=== PATIENT | female | born 1945 | race Caucasian/White ===

== ENCOUNTER 2018-09-24 11:08 | Inpatient (IN) | payer MEDICARE, MEDICAID | END 2018-10-02 14:02 | LOC: ER 11:08 → ED HOLD 16:25 → SUR 3N 19:23 | DX: A41.9 Sepsis, unspecified organism (principal); E43 Unspecified severe protein-calorie malnutrition; E87.1 Hypo-osmolality and hyponatremia; K80.51 Calculus of bile duct without cholangitis or cholecystitis with obstruction; L02.211 Cutaneous abscess of abdominal wall; K80.31 Calculus of bile duct with cholangitis, unspecified, with obstruction; N39.0 Urinary tract infection, site not specified; F32.9 Major depressive disorder, single episode, unspecified; I10 Essential (primary) hypertension; Z79.01 Long term (current) use of anticoagulants; E11.9 Type 2 diabetes mellitus without complications; G30.9 Alzheimer's disease, unspecified; F02.80 Dementia in other diseases classified elsewhere, unspecified severity, without behavioral disturbance, psychotic disturbance, mood disturbance, and anxiety; E03.9 Hypothyroidism, unspecified ==

== ENCOUNTER 2020-01-16 11:54 | Emergency (ER) | payer MEDICARE, MEDICAID ==
[~2020-01-16] VITALS: Ht 170.2 cm; Wt 128.6 kg
[~2020-01-16 11:54] MED LIST: DIGO125T97 PO; ESCI20TA PO; HYDR-3964 PO; IBUP-1984 PO; IPRA3AMP31 IH; LACT1CAP26 PO; LEVO50TA8 PO; LOSA50TA64 PO; MYL80T PO; OMEP20CA15 PO; POLY17PO10 PO; ROPI0.5T4 PO; SERT25TA5 PO; TRAM100T27 PO; TRAM50TA2 PO
[2020-01-16 12:00] VITALS: BP 158/84
--- NOTE | 2020-01-16 12:36 | NUR ---
CALL TO [phone] TO INFORM OF PT SHANICESNFER BACK TO [facility]. SHE STATES THEY HAVE AN [facility] ROOM READY. SPOKE WITH ALANA LAWRENCE IT INQUIRE PLAN FOR TRANSFER BACK. PLAN TO HAVE SAME CREW UNIT 142 TRANSFER PT BACK.
--- NOTE | 2020-01-16 12:53 | NUR ---
[facility] AWARE OF PT GLUER AND WEDGER.
--- NOTE | 2020-01-16 17:15 | NUR ---
RECEIVED CALL AGAIN FROM ZULEYKA AT [facility] RE PTS VISIT. SHE HAS ATTEMPTED TO F/U WITH [facility] FOR FUTHER QUESTIONS AND CONTACT TRACING FOR PT. ZULEYKA HAS BEEN UNABLE TO GET INTOUCH WITH [facility] AND IS NOT ABLE TO LEAVE A MESSAGE. SPOKE WITH ALPESH INIGUEZ THAT STATES FOR ANY QUESTIONS RE: COVID NEED TO GO TO [facility] OR [facility]. INFORMED ZULEYKA OF THIS AND INFROMED HER [facility] WAS TILE PICKER TOMORROW. SHE STATES SHE WILL TRY [facility] TOMORROW.
== END 2020-01-16 13:17 | disposition home or self-care (01) ==
LOC: ER 11:55
DX: U07.1 COVID-19 (principal); L02.211 Cutaneous abscess of abdominal wall; I48.91 Unspecified atrial fibrillation; I10 Essential (primary) hypertension; G47.30 Sleep apnea, unspecified; E11.9 Type 2 diabetes mellitus without complications; F32.9 Major depressive disorder, single episode, unspecified; Z88.8 Allergy status to other drugs, medicaments and biological substances; Z79.899 Other long term (current) drug therapy
CPT/HCPCS: 99281; 99283

== ENCOUNTER 2020-01-29 07:33 | Emergency (ER) | payer MEDICARE, MEDICAID ==
[~2020-01-29] VITALS: Ht 170.2 cm; Wt 127.0 kg
--- NOTE | 2020-01-29 08:51 | NUR ---
patient repositioned to right side.
--- NOTE | 2020-01-29 09:58 | NUR ---
PATIENT ASLEEP AT THIS TIME.
[2020-01-29 12:26] VITALS: BP 138/93
== END 2020-01-29 12:28 | disposition home or self-care (01) ==
LOC: ER 07:34
DX: T85.698A Other mechanical complication of other specified internal prosthetic devices, implants and grafts, initial encounter (principal); K75.0 Abscess of liver; I48.91 Unspecified atrial fibrillation; I10 Essential (primary) hypertension; G47.30 Sleep apnea, unspecified; E11.9 Type 2 diabetes mellitus without complications; F32.9 Major depressive disorder, single episode, unspecified; Z79.899 Other long term (current) drug therapy
CPT/HCPCS: 74176; 99285

== ENCOUNTER 2020-02-12 23:08 | Inpatient (IN) | payer MEDICARE, MEDICAID ==
[~2020-02-12] VITALS: Ht 172.7 cm; Wt 125.9 kg
[2020-02-12 23:23] LABS: BASOPHILS # (AUTO) 0.1 X10'3 (0-0.2); BASOPHILS % (AUTO) 0.3 % (0-1); EOSINOPHILS % (AUTO) 0.2 % (0-6); HEMATOCRIT 39.9 % (35.0-45.0); HEMOGLOBIN 12.7 g/dl (12.0-16.0); LYMPHOCYTES # (AUTO) 0.3 X10'3 (1.1-4.8); LYMPHOCYTES % (AUTO) 1.4 % (21-51); MEAN CORPUSCULAR HEMOGLOBIN 26.8 PG (27.0-31.0); MEAN CORPUSCULAR HGB CONC 31.8 g/dL (33.0-36.5); MEAN CORPUSCULAR VOLUME 84.5 FL (78-98); MEAN PLATELET VOLUME 8.1 FL (7.4-10.4); MONOCYTES # (AUTO) 0.6 X10'3 (0-0.9); MONOCYTES % (AUTO) 3.2 % (2-12); NEUTROPHILS % (AUTO) 94.9 % (42-75); PLATELET COUNT 333 X10'3 (140-440); RED BLOOD COUNT 4.72 X10'6 (4.20-5.60); RED CELL DISTRIBUTION WIDTH 17.3 % (11.5-14.5); WHITE BLOOD COUNT 17.9 X10'3 (4.5-11.0)
[2020-02-12 23:38] LABS: ANION GAP 10 (8-16); BILIRUBIN,TOTAL 1.3 MG/DL (0.1-1.0); BLOOD UREA NITROGEN 20 MG/DL (7-18); BUN/CREATININE RATIO 19.6 (6.6-38.0); CALCIUM 8.1 MG/DL (8.5-10.1); CHLORIDE 104 MMOL/L (99-107); CREATININE 1.02 MG/DL (0.40-0.90); GLUCOSE 224 MG/DL (70-104); SODIUM 138 MMOL/L (135-145); TOTAL CARBON DIOXIDE 24.4 MMOL/L (24-32); TOTAL PROTEIN 6.9 G/DL (6.4-8.2); eGFR 53 ML/MIN
[2020-02-12 23:39] LABS: ALANINE AMINOTRANSFERASE 493 U/L (12-78); ALBUMIN/GLOBULIN RATIO 0.8 (1.1-1.5); ALKALINE PHOSPHATASE 568 IU/L (46-116); ASPARTATE AMINO TRANSFERASE 648 U/L (10-37); LIPASE 77 U/L (73-393)
[2020-02-13] VITALS (17 sets, daily range): BP systolic 86–151; BP diastolic 48–79
[2020-02-13] MEDS ORDERED: acetaminophen 325mg tablet PO STA (00:33)
[2020-02-13] MEDS ORDERED: piperacillin/tazo 3.375gm/50ml 50 ML IV ONE (00:35)
[2020-02-13] MEDS ORDERED: normal saline 1000ML IV soln IV ONE (00:35)
[2020-02-13] MEDS ORDERED: vancomycin/NS 1 GM ADD-VANTAGE 250 ML IV ONE (00:35)
[2020-02-13 01:16] LABS: PARTIAL THROMBOPLASTIN TIME 27 SECONDS (22-32)
[2020-02-13] MEDS ORDERED: RIVA20TA PO (01:34)
[2020-02-13] MEDS ORDERED: HYDR-4383 PO (01:34)
[2020-02-13] MEDS ORDERED: SENN-263 PO (01:34)
[2020-02-13] MEDS ORDERED: DOCU100C38 PO (01:34)
[2020-02-13 01:57] LABS: CLARITY,URINE CLEAR (Clear); COLOR,URINE AMBER (Yellow); GLUCOSE, URINE NEGATIVE (Neg); KETONES,URINE NEGATIVE (Neg); LEUKOCYTE ESTERASE ,URINE NEGATIVE (Neg); NITRITES, URINE NEGATIVE (Neg); OCCULT BLOOD,URINE LARGE (Neg); PROTEIN,URINE NEGATIVE (Neg)
[2020-02-13 01:58] LABS: UA COLLECTION TYPE STRAIGHT CATH
[2020-02-13 02:08] LABS: BACTERIA,URINE NONE SEEN /HPF (Neg); MUCUS STRANDS FEW /LPF (Neg); SQUAMOUS EPITHELIAL CELL,UR FEW /LPF (FEW)
[2020-02-13] MEDS ORDERED: ONDA4TAB6 PO (02:10)
[2020-02-13] MEDS ORDERED: morphine 2 MG/ML inj. syringe IV PRN ×2 (04:15)
[2020-02-13] MEDS ORDERED: mag hydrox/Alum hydrox/simeth 30ml oral suspension PO PRN (04:15)
[2020-02-13] MEDS ORDERED: ondansetron/PF 4mg/2ml inj IV PRN (04:15)
[2020-02-13] MEDS ORDERED: ipratropium/albuterol 3ml nebule IH PRN (04:15)
[2020-02-13] MEDS ORDERED: polyethylene glycol 3350 17gm powd pack PO PRN (04:15)
[2020-02-13] MEDS ORDERED: potassium Cl 20 mEq SR tablet PO PRN ×2 (04:15)
[2020-02-13] MEDS ORDERED: magnesium hydroxide 30ml (MOM) UD suspension PO PRN (04:15)
[2020-02-13] MEDS ORDERED: potassium CL 10mEq/100ml bag 100 ML IV PRN ×2 (04:15)
[2020-02-13] MEDS ORDERED: acetaminophen 325mg tablet PO PRN (04:15)
--- NOTE | 2020-02-13 07:00 | NUR ---
Report received from ED [facility]
[2020-02-13] MEDS ORDERED: dextrose ORAL solution 15 GM/59 ML bottle PO PRN ×2 (07:45)
[2020-02-13] MEDS ORDERED: dextrose 50%-water 50ml dispensing syringe IV PRN ×2 (07:45)
[2020-02-13] MEDS ORDERED: insulin Lispro (HumaLOG) vial - multi-dose SQ SCH (07:45)
[2020-02-13] MEDS ORDERED: MESSAGE TO PHARMACY PO ONE (07:45)
[2020-02-13] MEDS ORDERED: glucagon, human recombinant 1mg kit SUBCUT PRN (07:45)
[2020-02-13] MEDS: K and/or MAG REPLACEMENT MC SCH ×2 (07:48→20:00)
[2020-02-13] MEDS: losartan 50mg tablet PO SCH (07:49)
[2020-02-13] MEDS: normal saline 1000ml 1,000 ML IV SCH ×3 (07:53→22:19)
[2020-02-13] MEDS ORDERED: docusate sod 100mg capsule PO SCH (08:00)
[2020-02-13 08:05] LABS: HEMOGLOBIN A1C 7.2 % (4.5-6.2)
[2020-02-13] MEDS: ESCITALOPRAM OXALATE 5 MG TABLET PO SCH (09:52)
[2020-02-13] MEDS: docusate sod 100mg capsule PO SCH (09:52)
[2020-02-13] MEDS: sennosides 8.6mg tablet PO SCH (09:52)
[2020-02-13] MEDS: piperacillin/tazo 3.375gm/50ml 50 ML IV SCH ×3 (09:53→23:56)
[2020-02-13] MEDS: pantoprazole 40mg Tablet.DR PO SCH (09:54)
[2020-02-13] MEDS: levoTHYROXINE 25mcg tablet PO SCH (09:54)
--- NOTE | 2020-02-13 14:30 | NUR ---
Pt off the floor to GI lab
[2020-02-13] MEDS ORDERED: fentaNYL/PF 50MCG/1 ML 2ML syringe ONE (14:40)
[2020-02-13] MEDS ORDERED: MIDAZolam 5mg/5ml vial ONE (14:40)
[2020-02-13] MEDS ORDERED: diphenhydrAMINE 50 mg/ml inj ONE (14:41)
[2020-02-13] MEDS ORDERED: glucagon, human recombinant 1mg kit ONE (14:41)
[2020-02-13] MEDS ORDERED: LIDOcaine Viscous 15ml cup ONE (14:41)
[2020-02-13] MEDS ORDERED: iohexol 300 MG/1 ML 50ml polymer ONE (14:41)
--- NOTE | 2020-02-13 18:10 | NUR ---
Problems reprioritized. Patient report given, questions answered & plan of care reviewed with RICARDO Mcclelland.
[2020-02-13] MEDS: insulin glargine (Lantus) pen - multi-dose SQ SCH (20:04)
[2020-02-13] MEDS: rivaroxaban 20mg tablet PO SCH (20:07)
[2020-02-13] MEDS: HYDROcodone/acetaminophen 5mg/325mg tablet PO PRN (20:07)
[2020-02-13] MEDS: digoxin 125mcg (0.125mg) tablet PO SCH (20:08)
[2020-02-13] MEDS: ROPINIRole 1mg tablet PO SCH (20:08)
[2020-02-13] MEDS: sertraline 25mg tablet PO SCH (20:09)
--- NOTE | 2020-02-13 21:01 | NUR ---
2100 blood glucose performed. Pt just finished eating late dinner tray one hour ago.
[2020-02-14 03:58] VITALS: BP 117/70
--- NOTE | 2020-02-14 06:00 | NUR ---
Patient in room ORTHO 4007. I have received report from [facility] and had the opportunity to ask questions and assume patient care.
[2020-02-14 06:52] LABS: BASOPHILS # (AUTO) 0.1 X10'3 (0-0.2); BASOPHILS % (AUTO) 0.4 % (0-1); EOSINOPHILS # (AUTO) 0.5 X10'3 (0-0.9); EOSINOPHILS % (AUTO) 3.5 % (0-6); HEMATOCRIT 34.2 % (35.0-45.0); HEMOGLOBIN 11.1 g/dl (12.0-16.0); LYMPHOCYTES # (AUTO) 0.7 X10'3 (1.1-4.8); LYMPHOCYTES % (AUTO) 4.9 % (21-51); MEAN CORPUSCULAR HEMOGLOBIN 27.8 PG (27.0-31.0); MEAN CORPUSCULAR HGB CONC 32.5 g/dL (33.0-36.5); MEAN CORPUSCULAR VOLUME 85.4 FL (78-98); MEAN PLATELET VOLUME 8.6 FL (7.4-10.4); MONOCYTES # (AUTO) 0.5 X10'3 (0-0.9); MONOCYTES % (AUTO) 3.6 % (2-12); NEUTROPHILS # (AUTO) 12.6 X10'3 (1.8-7.7); NEUTROPHILS % (AUTO) 87.6 % (42-75); PLATELET COUNT 287 X10'3 (140-440); RED CELL DISTRIBUTION WIDTH 17.1 % (11.5-14.5); WHITE BLOOD COUNT 14.4 X10'3 (4.5-11.0)
[2020-02-14 06:57] LABS: ALANINE AMINOTRANSFERASE 261 U/L (12-78); ALBUMIN 2.4 G/DL (3.4-5.0); ALBUMIN/GLOBULIN RATIO 0.7 (1.1-1.5); ANION GAP 7 (8-16); ASPARTATE AMINO TRANSFERASE 96 U/L (10-37); BILIRUBIN,TOTAL 1.1 MG/DL (0.1-1.0); BLOOD UREA NITROGEN 15 MG/DL (7-18); BUN/CREATININE RATIO 19.5 (6.6-38.0); CALCIUM 7.6 MG/DL (8.5-10.1); CHLORIDE 109 MMOL/L (99-107); CREATININE 0.77 MG/DL (0.40-0.90); GLUCOSE 97 MG/DL (70-104); POTASSIUM 3.5 MMOL/L (3.5-5.1); SODIUM 142 MMOL/L (135-145); TOTAL CARBON DIOXIDE 25.9 MMOL/L (24-32); eGFR 73 ML/MIN
[2020-02-14 07:15] LABS: ALKALINE PHOSPHATASE 298 IU/L (46-116)
[2020-02-14] MEDS: losartan 50mg tablet PO SCH (07:47)
[2020-02-14] MEDS: pantoprazole 40mg Tablet.DR PO SCH (07:47)
[2020-02-14] MEDS: ESCITALOPRAM OXALATE 5 MG TABLET PO SCH (07:47)
[2020-02-14] MEDS: docusate sod 100mg capsule PO SCH (07:47)
[2020-02-14] MEDS: levoTHYROXINE 25mcg tablet PO SCH (07:47)
[2020-02-14] MEDS: sennosides 8.6mg tablet PO SCH (07:47)
[2020-02-14] MEDS: K and/or MAG REPLACEMENT MC SCH ×2 (08:00→20:00)
[2020-02-14] MEDS ORDERED: docusate sod 100mg capsule PO SCH (08:00)
[2020-02-14] MEDS: piperacillin/tazo 3.375gm/50ml 50 ML IV SCH ×2 (08:09→15:53)
[2020-02-14 10:00] VITALS: BP 115/77
[2020-02-14] MEDS: normal saline 1000ml 1,000 ML IV SCH ×2 (10:21→19:55)
--- NOTE | 2020-02-14 13:09 | NUR ---
DM Consult: A1C 7.2. Pt admit w/ RUQ abdominal abscess and pain placed on full liquid diet. Sepsis score 0 w/ clutures negative per EMR. A1C appropriate given geriatric age; DM ed not appropriate at this time. Addendum: 02/14/20 at [address] Amended: Links added.
[2020-02-14 18:00] VITALS: BP 148/80
--- NOTE | 2020-02-14 18:16 | NUR ---
Problems reprioritized. Patient report given, questions answered & plan of care reviewed with Sara.
[2020-02-14] MEDS: insulin glargine (Lantus) pen - multi-dose SQ SCH (21:00)
[2020-02-14] MEDS: lactobacillus rhamnosus 10,000 MMU CELLS/CAPSULE PO SCH (21:38)
[2020-02-14] MEDS: sertraline 25mg tablet PO SCH (21:39)
[2020-02-14] MEDS: rivaroxaban 20mg tablet PO SCH (21:39)
[2020-02-14] MEDS: digoxin 125mcg (0.125mg) tablet PO SCH (21:39)
[2020-02-14] MEDS: ROPINIRole 1mg tablet PO SCH (21:41)
[2020-02-14 22:00] VITALS: BP 158/87
[2020-02-15] MEDS: HYDROcodone/acetaminophen 5mg/325mg tablet PO PRN ×3 (00:09→13:39)
[2020-02-15] MEDS: piperacillin/tazo 3.375gm/50ml 50 ML IV SCH ×2 (00:10→07:57)
[2020-02-15 05:58] LABS: BASOPHILS # (AUTO) 0.1 X10'3 (0-0.2); BASOPHILS % (AUTO) 0.6 % (0-1); EOSINOPHILS # (AUTO) 0.5 X10'3 (0-0.9); EOSINOPHILS % (AUTO) 4.8 % (0-6); HEMATOCRIT 34.5 % (35.0-45.0); HEMOGLOBIN 11.1 g/dl (12.0-16.0); LYMPHOCYTES # (AUTO) 1.3 X10'3 (1.1-4.8); MEAN CORPUSCULAR HEMOGLOBIN 27.3 PG (27.0-31.0); MEAN CORPUSCULAR VOLUME 85.2 FL (78-98); MEAN PLATELET VOLUME 8.3 FL (7.4-10.4); MONOCYTES # (AUTO) 0.5 X10'3 (0-0.9); MONOCYTES % (AUTO) 5.6 % (2-12); NEUTROPHILS # (AUTO) 7.4 X10'3 (1.8-7.7); PLATELET COUNT 292 X10'3 (140-440); RED BLOOD COUNT 4.06 X10'6 (4.20-5.60); RED CELL DISTRIBUTION WIDTH 17.2 % (11.5-14.5); WHITE BLOOD COUNT 9.7 X10'3 (4.5-11.0)
[2020-02-15] MEDS: normal saline 1000ml 1,000 ML IV SCH (06:11)
[2020-02-15 06:17] LABS: ALBUMIN 2.4 G/DL (3.4-5.0); ALBUMIN/GLOBULIN RATIO 0.7 (1.1-1.5); ANION GAP 9 (8-16); ASPARTATE AMINO TRANSFERASE 30 U/L (10-37); BILIRUBIN,TOTAL 0.7 MG/DL (0.1-1.0); BLOOD UREA NITROGEN 10 MG/DL (7-18); BUN/CREATININE RATIO 11.1 (6.6-38.0); CALCIUM 8.1 MG/DL (8.5-10.1); CHLORIDE 110 MMOL/L (99-107); GLUCOSE 121 MG/DL (70-104); POTASSIUM 3.4 MMOL/L (3.5-5.1); SODIUM 143 MMOL/L (135-145); TOTAL CARBON DIOXIDE 24.4 MMOL/L (24-32); eGFR 61 ML/MIN
[2020-02-15 06:18] LABS: ALANINE AMINOTRANSFERASE 164 U/L (12-78); ALKALINE PHOSPHATASE 252 IU/L (46-116)
[2020-02-15 06:48] VITALS: BP 135/60
--- NOTE | 2020-02-15 06:56 | NUR ---
Received report from Sara SILVA
[2020-02-15] MEDS: lactobacillus rhamnosus 10,000 MMU CELLS/CAPSULE PO SCH (07:56)
[2020-02-15] MEDS: docusate sod 100mg capsule PO SCH (07:57)
[2020-02-15] MEDS: pantoprazole 40mg Tablet.DR PO SCH (07:57)
[2020-02-15] MEDS: losartan 50mg tablet PO SCH (07:57)
[2020-02-15] MEDS: sennosides 8.6mg tablet PO SCH (07:57)
[2020-02-15] MEDS: levoTHYROXINE 25mcg tablet PO SCH (07:57)
[2020-02-15] MEDS: ESCITALOPRAM OXALATE 5 MG TABLET PO SCH (07:57)
[2020-02-15] MEDS: K and/or MAG REPLACEMENT MC SCH (08:00)
--- NOTE | 2020-02-15 15:42 | NUR ---
PATIENT WAS DISCHARGED IV AND TELE WAS REMOVED FROM PATIENT. PATIENT WAS ALERT AND ORIENTED AT TIME OF DISCHARGE. PATIENT LEFT TO [facility] AND REPORT WAS CALLED TO [facility] PATIENT LEFT WITH ROBINA MONTAGUE
== END 2020-02-15 14:35 | DRG 872 ==
LOC: ER 23:08 → ED HOLD 02-13 04:11 → ORTHO 4S 02-13 07:20
PROVIDERS: ADMIT Internal Medicine; ATTEND Internal Medicine
PROC: 0FC98ZZ Extirpation of Matter from Common Bile Duct, Via Natural or Artificial Opening Endoscopic (ICD-10-PCS; principal; 2020-02-13)
PROC: 0F798DZ Dilation of Common Bile Duct with Intraluminal Device, Via Natural or Artificial Opening Endoscopic (ICD-10-PCS; 2020-02-13)
PROC: BF101ZZ Fluoroscopy of Bile Ducts using Low Osmolar Contrast (ICD-10-PCS; 2020-02-13)
DX: A41.9 Sepsis, unspecified organism (principal); L02.211 Cutaneous abscess of abdominal wall; Z68.41 Body mass index [BMI] 40.0-44.9, adult; K80.31 Calculus of bile duct with cholangitis, unspecified, with obstruction; E03.9 Hypothyroidism, unspecified; E66.01 Morbid (severe) obesity due to excess calories; G47.33 Obstructive sleep apnea (adult) (pediatric); E11.9 Type 2 diabetes mellitus without complications; F32.9 Major depressive disorder, single episode, unspecified; I10 Essential (primary) hypertension; I48.91 Unspecified atrial fibrillation; M17.0 Bilateral primary osteoarthritis of knee; Z66 Do not resuscitate; Z74.01 Bed confinement status; Z79.01 Long term (current) use of anticoagulants; Z88.1 Allergy status to other antibiotic agents; Z98.82 Breast implant status; Z99.81 Dependence on supplemental oxygen; Z79.899 Other long term (current) drug therapy
CPT/HCPCS: 36415; 43264; 43274; 74176; 80053; 81001; 82948; 83036; 83605; 83690; 84145; 85025; 85610; 85730; 87040; 87081; 87088; 93005; 94760; 96365; 96375; 97162; 97530; 99153; 99285; A4620; C1769; G0378; J1200; J1610; J1815; J2250; J2543; J3010; J3370; J7030; J7040; Q9967

== ENCOUNTER 2020-03-07 06:29 | Day surgery (SDC) | payer MEDICARE, MEDICAID ==
[2020-03-07] VITALS (7 sets, daily range): BP systolic 102–138; BP diastolic 58–96
[~2020-03-07] VITALS: Ht 170.2 cm; Wt 123.2 kg
[~2020-03-07 06:29] MED LIST changes: +DOCU100C38 PO; +HYDR-4383 PO; -IBUP-1984 PO; +ONDA4TAB6 PO; +RIVA20TA PO; +SENN-263 PO
[2020-03-07] MEDS ORDERED: fentaNYL/PF 50MCG/1 ML 2ML syringe ONE ×2 (06:44→06:46)
[2020-03-07] MEDS ORDERED: glucagon, human recombinant 1mg kit ONE (06:45)
[2020-03-07] MEDS ORDERED: iohexol 300 MG/1 ML 50ml polymer ONE (06:45)
[2020-03-07] MEDS ORDERED: LIDOcaine Viscous 15ml cup ONE (06:45)
[2020-03-07] MEDS ORDERED: MIDAZolam 5mg/5ml vial ONE (06:45)
[2020-03-07] MEDS ORDERED: CEPH-572 PO (06:46)
[2020-03-07] MEDS ORDERED: levoFLOXACIN-Levaquin 500mg/D5 100 ML IV ONE (07:29)
== END 2020-03-07 09:00 ==
LOC: GI LAB 06:29
PROVIDERS: ATTEND Internal Medicine Gastroenterology
DX: Z46.59 Encounter for fitting and adjustment of other gastrointestinal appliance and device (principal); K83.8 Other specified diseases of biliary tract
CPT/HCPCS: 43264; 43275; C1769; C1773; G0500; J1610; J1956; J2250; J3010; J7040; Q9967; 99152; A4620

== ENCOUNTER 2020-03-15 09:52 | Day surgery (SDC) | payer MEDICARE, MEDICAID ==
[~2020-03-15 09:52] MED LIST changes: +CEPH-572 PO
[2020-03-15] MEDS ORDERED: LIDOcaine 2% 5ml jelly ONE (10:53)
[2020-03-22] MEDS ORDERED: LIDOcaine 2% 5ml jelly ONE (09:58)
== END 2020-03-22 10:32 | disposition home or self-care (01) ==
LOC: WOUND CARE 09:52
PROVIDERS: ATTEND Nurse Practitioner
DX: L02.211 Cutaneous abscess of abdominal wall (principal); E11.622 Type 2 diabetes mellitus with other skin ulcer; L98.492 Non-pressure chronic ulcer of skin of other sites with fat layer exposed; I10 Essential (primary) hypertension; E03.9 Hypothyroidism, unspecified; E66.01 Morbid (severe) obesity due to excess calories; G47.33 Obstructive sleep apnea (adult) (pediatric); I48.91 Unspecified atrial fibrillation; M19.90 Unspecified osteoarthritis, unspecified site; M17.0 Bilateral primary osteoarthritis of knee; F32.9 Major depressive disorder, single episode, unspecified; Z90.710 Acquired absence of both cervix and uterus; Z88.1 Allergy status to other antibiotic agents; Z79.899 Other long term (current) drug therapy; Z98.49 Cataract extraction status, unspecified eye; Z95.5 Presence of coronary angioplasty implant and graft; Z79.01 Long term (current) use of anticoagulants; Z68.41 Body mass index [BMI] 40.0-44.9, adult
CPT/HCPCS: 97597

== ENCOUNTER 2020-03-29 10:25 | Day surgery (SDC) | payer MEDICARE, MEDICAID ==
[2020-03-29] MEDS ORDERED: LIDOcaine 2% 5ml jelly ONE (10:50)
[2020-03-30] MEDS ORDERED: BUPIVAcaine/PF 2.5 mg/ml (0.25%) 30ml vial ONE (12:28)
[2020-03-30] MEDS ORDERED: ACET325T63 PO (18:12)
[2020-03-30] MEDS ORDERED: GLUC1KIT IM (18:12)
[2020-03-30] MEDS ORDERED: BISA10SU60 RC (18:12)
== END 2020-03-29 12:45 | disposition home or self-care (01) ==
LOC: WOUND CARE 10:25
PROVIDERS: ATTEND Nurse Practitioner
DX: L02.211 Cutaneous abscess of abdominal wall (principal); E11.622 Type 2 diabetes mellitus with other skin ulcer; L98.492 Non-pressure chronic ulcer of skin of other sites with fat layer exposed; I10 Essential (primary) hypertension; E03.9 Hypothyroidism, unspecified; E66.01 Morbid (severe) obesity due to excess calories; G47.33 Obstructive sleep apnea (adult) (pediatric); I48.91 Unspecified atrial fibrillation; M19.90 Unspecified osteoarthritis, unspecified site; M17.0 Bilateral primary osteoarthritis of knee; F32.9 Major depressive disorder, single episode, unspecified; Z90.710 Acquired absence of both cervix and uterus; Z88.1 Allergy status to other antibiotic agents; Z79.899 Other long term (current) drug therapy; Z98.49 Cataract extraction status, unspecified eye; Z95.5 Presence of coronary angioplasty implant and graft; Z79.01 Long term (current) use of anticoagulants; Z68.41 Body mass index [BMI] 40.0-44.9, adult
CPT/HCPCS: 97597; J3490

== ENCOUNTER 2020-04-06 10:55 | Day surgery (SDC) | payer MEDICARE, MEDICAID ==
[~2020-04-06 10:55] MED LIST changes: +ACET325T63 PO; +BISA10SU60 RC; -CEPH-572 PO; -DOCU100C38 PO; -ESCI20TA PO; +GLUC1KIT IM; -ONDA4TAB6 PO
[2020-04-06] MEDS ORDERED: LIDOcaine 2% 5ml jelly ONE (11:22)
[2020-04-06] MEDS ORDERED: LIDOcaine 4% (40 mg/ml) topical solution 50ml ONE (11:35)
[2020-04-07] MEDS ORDERED: LIDOcaine 2% 5ml jelly ONE (10:36)
== END 2020-04-06 13:15 | disposition home or self-care (01) ==
LOC: WOUND CARE 10:55
PROVIDERS: ATTEND Nurse Practitioner
DX: T81.89XA Other complications of procedures, not elsewhere classified, initial encounter (principal); E11.622 Type 2 diabetes mellitus with other skin ulcer; L98.492 Non-pressure chronic ulcer of skin of other sites with fat layer exposed; E11.36 Type 2 diabetes mellitus with diabetic cataract; I10 Essential (primary) hypertension; E03.9 Hypothyroidism, unspecified; E66.01 Morbid (severe) obesity due to excess calories; G47.33 Obstructive sleep apnea (adult) (pediatric); I48.91 Unspecified atrial fibrillation; M19.90 Unspecified osteoarthritis, unspecified site; M17.0 Bilateral primary osteoarthritis of knee; F32.9 Major depressive disorder, single episode, unspecified; Z90.710 Acquired absence of both cervix and uterus; Z88.1 Allergy status to other antibiotic agents; Z79.899 Other long term (current) drug therapy; Z98.49 Cataract extraction status, unspecified eye; Z95.5 Presence of coronary angioplasty implant and graft; Z79.01 Long term (current) use of anticoagulants; Z68.41 Body mass index [BMI] 40.0-44.9, adult; Y83.8 Other surgical procedures as the cause of abnormal reaction of the patient, or of later complication, without mention of misadventure at the time of the procedure; Y92.238 Other place in hospital as the place of occurrence of the external cause
CPT/HCPCS: 97597

== ENCOUNTER 2020-04-07 07:23 | Emergency (ER) | payer MEDICARE, MEDICAID ==
[~2020-04-07] VITALS: Ht 170.2 cm; Wt 126.8 kg
[2020-04-07] MEDS ORDERED: LIDOcaine 1% W/epiNEPHrine 1:100,000 20ml vial SQ ONE (07:35)
[2020-04-07 08:38] LABS: BASOPHILS # (AUTO) 0.1 X10'3 (0-0.2); BASOPHILS % (AUTO) 0.7 % (0-1); EOSINOPHILS # (AUTO) 0.3 X10'3 (0-0.9); EOSINOPHILS % (AUTO) 3.1 % (0-6); HEMATOCRIT 37.5 % (35.0-45.0); HEMOGLOBIN 12.1 g/dl (12.0-16.0); LYMPHOCYTES # (AUTO) 1.7 X10'3 (1.1-4.8); LYMPHOCYTES % (AUTO) 16.1 % (21-51); MEAN CORPUSCULAR HEMOGLOBIN 27.1 PG (27.0-31.0); MEAN CORPUSCULAR HGB CONC 32.3 g/dL (33.0-36.5); MEAN CORPUSCULAR VOLUME 83.8 FL (78-98); MEAN PLATELET VOLUME 8.2 FL (7.4-10.4); MONOCYTES # (AUTO) 0.6 X10'3 (0-0.9); MONOCYTES % (AUTO) 5.7 % (2-12); NEUTROPHILS # (AUTO) 7.9 X10'3 (1.8-7.7); NEUTROPHILS % (AUTO) 74.4 % (42-75); PLATELET COUNT 320 X10'3 (140-440); RED BLOOD COUNT 4.47 X10'6 (4.20-5.60); RED CELL DISTRIBUTION WIDTH 17.1 % (11.5-14.5); WHITE BLOOD COUNT 10.6 X10'3 (4.5-11.0)
[2020-04-07 08:54] LABS: ALBUMIN 2.9 G/DL (3.4-5.0); ANION GAP 7 (8-16); BLOOD UREA NITROGEN 19 MG/DL (7-18); CHLORIDE 104 MMOL/L (99-107); CREATININE 0.73 MG/DL (0.40-0.90); GLUCOSE 151 MG/DL (70-104); POTASSIUM 4.1 MMOL/L (3.5-5.1); SODIUM 139 MMOL/L (135-145); TOTAL CARBON DIOXIDE 27.9 MMOL/L (24-32); eGFR 78 ML/MIN
--- NOTE | 2020-04-07 09:19 | NUR ---
Patient to wound care in [facility] by [facility] for wound vac placement by wound care nurse.
--- NOTE | 2020-04-07 10:53 | NUR ---
PATIENT STILL IN WOUND CARE, CALLED TO CHECK IN ON PATIENT. RN REPORTS SHE IS STILL THERE AND WILL BE FOR A WHILE. THEY WILL CALL WHEN SHE IS DONE.
--- NOTE | 2020-04-07 11:08 | NUR ---
Patient back from wound care. Dressing in place. [facility]TA 1230 for picker and sorter load and unload and transport home. Patient reports feeling much better.
--- NOTE | 2020-04-07 11:54 | NUR ---
Break relief for primary nurse. Pt is resting with even and unlabored respirations. Pt is awaiting transport to [facility].
[2020-04-07 12:16] VITALS: BP 157/65
== END 2020-04-07 12:22 | disposition home or self-care (01) ==
LOC: ER 07:24
DX: T81.9XXA Unspecified complication of procedure, initial encounter (principal); R58 Hemorrhage, not elsewhere classified; I48.91 Unspecified atrial fibrillation; I10 Essential (primary) hypertension; G47.30 Sleep apnea, unspecified; E11.9 Type 2 diabetes mellitus without complications; F32.9 Major depressive disorder, single episode, unspecified; Z98.890 Other specified postprocedural states; Z88.8 Allergy status to other drugs, medicaments and biological substances; Z79.01 Long term (current) use of anticoagulants; Z79.899 Other long term (current) drug therapy
CPT/HCPCS: 36415; 80048; 85025; 85610; 86885; 86900; 86901; 96372; 99283; G0463

== ENCOUNTER 2020-04-13 10:00 | Day surgery (SDC) | payer MEDICARE, MEDICAID ==
[2020-04-13] MEDS ORDERED: LIDOcaine 2% 5ml jelly ONE (10:31)
== END 2020-04-13 11:50 | disposition home or self-care (01) ==
LOC: WOUND CARE 10:00
PROVIDERS: ATTEND Nurse Practitioner
DX: T81.89XD Other complications of procedures, not elsewhere classified, subsequent encounter (principal); E11.622 Type 2 diabetes mellitus with other skin ulcer; L98.492 Non-pressure chronic ulcer of skin of other sites with fat layer exposed; L02.211 Cutaneous abscess of abdominal wall; E11.36 Type 2 diabetes mellitus with diabetic cataract; I10 Essential (primary) hypertension; E03.9 Hypothyroidism, unspecified; E66.01 Morbid (severe) obesity due to excess calories; G47.33 Obstructive sleep apnea (adult) (pediatric); I48.91 Unspecified atrial fibrillation; M19.90 Unspecified osteoarthritis, unspecified site; M17.0 Bilateral primary osteoarthritis of knee; F32.9 Major depressive disorder, single episode, unspecified; F41.9 Anxiety disorder, unspecified; Z90.710 Acquired absence of both cervix and uterus; Z88.1 Allergy status to other antibiotic agents; Z79.899 Other long term (current) drug therapy; Z98.49 Cataract extraction status, unspecified eye; Z95.5 Presence of coronary angioplasty implant and graft; Z79.01 Long term (current) use of anticoagulants; Z68.41 Body mass index [BMI] 40.0-44.9, adult; Y83.8 Other surgical procedures as the cause of abnormal reaction of the patient, or of later complication, without mention of misadventure at the time of the procedure
CPT/HCPCS: 97597

== ENCOUNTER 2020-04-21 09:20 | Day surgery (SDC) | payer MEDICARE, MEDICAID ==
[2020-04-21] MEDS ORDERED: LIDOcaine 2% 5ml jelly ONE (10:02)
== END 2020-04-21 10:47 | disposition home or self-care (01) ==
LOC: WOUND CARE 09:20
PROVIDERS: ATTEND Nurse Practitioner
DX: T81.89XD Other complications of procedures, not elsewhere classified, subsequent encounter (principal); E11.622 Type 2 diabetes mellitus with other skin ulcer; L98.492 Non-pressure chronic ulcer of skin of other sites with fat layer exposed; L02.211 Cutaneous abscess of abdominal wall; I10 Essential (primary) hypertension; E03.9 Hypothyroidism, unspecified; E66.01 Morbid (severe) obesity due to excess calories; G47.33 Obstructive sleep apnea (adult) (pediatric); I48.91 Unspecified atrial fibrillation; M19.90 Unspecified osteoarthritis, unspecified site; M17.0 Bilateral primary osteoarthritis of knee; F32.9 Major depressive disorder, single episode, unspecified; F41.9 Anxiety disorder, unspecified; Z90.710 Acquired absence of both cervix and uterus; Z79.899 Other long term (current) drug therapy; Z98.49 Cataract extraction status, unspecified eye; Z95.5 Presence of coronary angioplasty implant and graft; Z79.01 Long term (current) use of anticoagulants; Z68.41 Body mass index [BMI] 40.0-44.9, adult; Y83.8 Other surgical procedures as the cause of abnormal reaction of the patient, or of later complication, without mention of misadventure at the time of the procedure
CPT/HCPCS: 97597

== ENCOUNTER 2020-04-27 11:55 | Day surgery (SDC) | payer MEDICARE, MEDICAID ==
[2020-04-27] MEDS ORDERED: LIDOcaine 2% 5ml jelly ONE (13:10)
== END 2020-04-27 14:17 | disposition home or self-care (01) ==
LOC: WOUND CARE 11:55
PROVIDERS: ATTEND Nurse Practitioner
DX: T81.89XD Other complications of procedures, not elsewhere classified, subsequent encounter (principal); E11.622 Type 2 diabetes mellitus with other skin ulcer; L98.492 Non-pressure chronic ulcer of skin of other sites with fat layer exposed; L02.211 Cutaneous abscess of abdominal wall; E11.36 Type 2 diabetes mellitus with diabetic cataract; I10 Essential (primary) hypertension; E03.9 Hypothyroidism, unspecified; E66.01 Morbid (severe) obesity due to excess calories; G47.33 Obstructive sleep apnea (adult) (pediatric); I48.91 Unspecified atrial fibrillation; M19.90 Unspecified osteoarthritis, unspecified site; M17.0 Bilateral primary osteoarthritis of knee; F32.9 Major depressive disorder, single episode, unspecified; F41.9 Anxiety disorder, unspecified; Z90.710 Acquired absence of both cervix and uterus; Z79.899 Other long term (current) drug therapy; Z98.49 Cataract extraction status, unspecified eye; Z95.5 Presence of coronary angioplasty implant and graft; Z79.01 Long term (current) use of anticoagulants; Z68.41 Body mass index [BMI] 40.0-44.9, adult; Y83.8 Other surgical procedures as the cause of abnormal reaction of the patient, or of later complication, without mention of misadventure at the time of the procedure
CPT/HCPCS: 97597

== ENCOUNTER 2020-05-04 12:20 | Day surgery (SDC) | payer MEDICARE, MEDICAID ==
[2020-05-04] MEDS ORDERED: LIDOcaine 2% 5ml jelly ONE (14:16)
== END 2020-05-04 15:12 | disposition home or self-care (01) ==
LOC: WOUND CARE 12:20
PROVIDERS: ATTEND Nurse Practitioner
DX: T81.89XD Other complications of procedures, not elsewhere classified, subsequent encounter (principal); E11.622 Type 2 diabetes mellitus with other skin ulcer; L98.492 Non-pressure chronic ulcer of skin of other sites with fat layer exposed; L02.211 Cutaneous abscess of abdominal wall; E11.36 Type 2 diabetes mellitus with diabetic cataract; I10 Essential (primary) hypertension; E03.9 Hypothyroidism, unspecified; E66.01 Morbid (severe) obesity due to excess calories; G47.33 Obstructive sleep apnea (adult) (pediatric); I48.91 Unspecified atrial fibrillation; M19.90 Unspecified osteoarthritis, unspecified site; M17.0 Bilateral primary osteoarthritis of knee; F32.9 Major depressive disorder, single episode, unspecified; F41.9 Anxiety disorder, unspecified; Z90.710 Acquired absence of both cervix and uterus; Z79.899 Other long term (current) drug therapy; Z98.49 Cataract extraction status, unspecified eye; Z95.5 Presence of coronary angioplasty implant and graft; Z79.01 Long term (current) use of anticoagulants; Z68.41 Body mass index [BMI] 40.0-44.9, adult; Y83.8 Other surgical procedures as the cause of abnormal reaction of the patient, or of later complication, without mention of misadventure at the time of the procedure
CPT/HCPCS: 97597

== ENCOUNTER 2020-05-11 12:16 | Outpatient (CLI) | payer MEDICARE, MEDICAID ==
[2020-05-11] MEDS ORDERED: LIDOcaine 2% 5ml jelly ONE (13:27)
== END 2020-05-11 14:30 | disposition home or self-care (01) ==
LOC: WOUND CARE 12:16 → EDSTATUS 12:20 → WOUND CARE 14:30
PROVIDERS: ATTEND Nurse Practitioner
DX: T81.89XD Other complications of procedures, not elsewhere classified, subsequent encounter (principal); E11.622 Type 2 diabetes mellitus with other skin ulcer; L98.492 Non-pressure chronic ulcer of skin of other sites with fat layer exposed; L02.211 Cutaneous abscess of abdominal wall; E11.36 Type 2 diabetes mellitus with diabetic cataract; I10 Essential (primary) hypertension; E03.9 Hypothyroidism, unspecified; E66.01 Morbid (severe) obesity due to excess calories; G47.33 Obstructive sleep apnea (adult) (pediatric); I48.91 Unspecified atrial fibrillation; M19.90 Unspecified osteoarthritis, unspecified site; M17.0 Bilateral primary osteoarthritis of knee; F32.9 Major depressive disorder, single episode, unspecified; F41.9 Anxiety disorder, unspecified; Z90.710 Acquired absence of both cervix and uterus; Z79.899 Other long term (current) drug therapy; Z98.49 Cataract extraction status, unspecified eye; Z95.5 Presence of coronary angioplasty implant and graft; Z79.01 Long term (current) use of anticoagulants; Z68.41 Body mass index [BMI] 40.0-44.9, adult; Y83.8 Other surgical procedures as the cause of abnormal reaction of the patient, or of later complication, without mention of misadventure at the time of the procedure
CPT/HCPCS: 97597

== ENCOUNTER 2020-05-18 12:24 | Outpatient (CLI) | payer MEDICARE, MEDICAID ==
[2020-05-18] MEDS ORDERED: LIDOcaine 2% 5ml jelly ONE (13:09)
== END 2020-05-18 23:59 | disposition home or self-care (01) ==
LOC: WOUND CARE 12:24
PROVIDERS: ATTEND Nurse Practitioner
DX: T81.89XD Other complications of procedures, not elsewhere classified, subsequent encounter (principal); E11.622 Type 2 diabetes mellitus with other skin ulcer; L98.492 Non-pressure chronic ulcer of skin of other sites with fat layer exposed; L02.211 Cutaneous abscess of abdominal wall; E11.36 Type 2 diabetes mellitus with diabetic cataract; I10 Essential (primary) hypertension; E03.9 Hypothyroidism, unspecified; E66.01 Morbid (severe) obesity due to excess calories; G47.33 Obstructive sleep apnea (adult) (pediatric); I48.91 Unspecified atrial fibrillation; M19.90 Unspecified osteoarthritis, unspecified site; M17.0 Bilateral primary osteoarthritis of knee; F32.9 Major depressive disorder, single episode, unspecified; F41.9 Anxiety disorder, unspecified; Z90.710 Acquired absence of both cervix and uterus; Z79.899 Other long term (current) drug therapy; Z98.49 Cataract extraction status, unspecified eye; Z95.5 Presence of coronary angioplasty implant and graft; Z79.01 Long term (current) use of anticoagulants; Z68.41 Body mass index [BMI] 40.0-44.9, adult; Y83.8 Other surgical procedures as the cause of abnormal reaction of the patient, or of later complication, without mention of misadventure at the time of the procedure
CPT/HCPCS: 11042

== ENCOUNTER 2020-06-01 11:58 | Outpatient (CLI) | payer MEDICARE, MEDICAID ==
[2020-06-01] MEDS ORDERED: LIDOcaine 2% 5ml jelly ONE (12:13)
== END 2020-06-01 23:59 | disposition home or self-care (01) ==
LOC: WOUND CARE 11:58 → EDSTATUS 12:20 → WOUND CARE 23:59
PROVIDERS: ATTEND Nurse Practitioner
DX: T81.89XD Other complications of procedures, not elsewhere classified, subsequent encounter (principal); E11.622 Type 2 diabetes mellitus with other skin ulcer; L98.492 Non-pressure chronic ulcer of skin of other sites with fat layer exposed; L02.211 Cutaneous abscess of abdominal wall; E11.36 Type 2 diabetes mellitus with diabetic cataract; I10 Essential (primary) hypertension; E03.9 Hypothyroidism, unspecified; E66.01 Morbid (severe) obesity due to excess calories; G47.33 Obstructive sleep apnea (adult) (pediatric); I48.91 Unspecified atrial fibrillation; M19.90 Unspecified osteoarthritis, unspecified site; M17.0 Bilateral primary osteoarthritis of knee; F32.9 Major depressive disorder, single episode, unspecified; F40.240 Claustrophobia; F41.9 Anxiety disorder, unspecified; Z90.710 Acquired absence of both cervix and uterus; Z79.899 Other long term (current) drug therapy; Z98.49 Cataract extraction status, unspecified eye; Z95.5 Presence of coronary angioplasty implant and graft; Z79.01 Long term (current) use of anticoagulants; Z68.41 Body mass index [BMI] 40.0-44.9, adult; Y83.8 Other surgical procedures as the cause of abnormal reaction of the patient, or of later complication, without mention of misadventure at the time of the procedure
CPT/HCPCS: 11043

== ENCOUNTER 2020-06-08 12:05 | Outpatient (CLI) | payer MEDICAID, MEDICARE, OTHER ==
[2020-06-08] MEDS ORDERED: LIDOcaine 2% 5ml jelly ONE (12:52)
== END 2020-06-08 23:59 | disposition home or self-care (01) ==
LOC: WOUND CARE 12:05 → EDSTATUS 12:20 → WOUND CARE 23:59
PROVIDERS: ATTEND Nurse Practitioner
DX: T81.89XD Other complications of procedures, not elsewhere classified, subsequent encounter (principal); E11.622 Type 2 diabetes mellitus with other skin ulcer; L98.495 Non-pressure chronic ulcer of skin of other sites with muscle involvement without evidence of necrosis; L02.211 Cutaneous abscess of abdominal wall; E11.36 Type 2 diabetes mellitus with diabetic cataract; I10 Essential (primary) hypertension; E03.9 Hypothyroidism, unspecified; E66.01 Morbid (severe) obesity due to excess calories; G47.33 Obstructive sleep apnea (adult) (pediatric); I48.91 Unspecified atrial fibrillation; M19.90 Unspecified osteoarthritis, unspecified site; M17.0 Bilateral primary osteoarthritis of knee; F32.9 Major depressive disorder, single episode, unspecified; F40.240 Claustrophobia; F41.9 Anxiety disorder, unspecified; Z90.710 Acquired absence of both cervix and uterus; Z79.899 Other long term (current) drug therapy; Z98.49 Cataract extraction status, unspecified eye; Z95.5 Presence of coronary angioplasty implant and graft; Z79.01 Long term (current) use of anticoagulants; Z68.41 Body mass index [BMI] 40.0-44.9, adult; Y83.8 Other surgical procedures as the cause of abnormal reaction of the patient, or of later complication, without mention of misadventure at the time of the procedure
CPT/HCPCS: 11043; 97605

== ENCOUNTER → 2020-06-15 | Day surgery (SDC) | payer MEDICARE, MEDICAID ==
[~2020-06-15] MED LIST changes: +LIDOcaine 2% 5ml jelly ONE
== END | disposition home or self-care (01) ==
LOC: WOUND CARE 12:05
PROVIDERS: ATTEND Nurse Practitioner
DX: T81.89XD Other complications of procedures, not elsewhere classified, subsequent encounter (principal); E11.622 Type 2 diabetes mellitus with other skin ulcer; L98.492 Non-pressure chronic ulcer of skin of other sites with fat layer exposed; L02.211 Cutaneous abscess of abdominal wall; E11.36 Type 2 diabetes mellitus with diabetic cataract; I10 Essential (primary) hypertension; E03.9 Hypothyroidism, unspecified; E66.01 Morbid (severe) obesity due to excess calories; G47.33 Obstructive sleep apnea (adult) (pediatric); I48.91 Unspecified atrial fibrillation; M19.90 Unspecified osteoarthritis, unspecified site; M17.0 Bilateral primary osteoarthritis of knee; F32.9 Major depressive disorder, single episode, unspecified; F40.240 Claustrophobia; F41.9 Anxiety disorder, unspecified; Z90.710 Acquired absence of both cervix and uterus; Z79.899 Other long term (current) drug therapy; Z98.49 Cataract extraction status, unspecified eye; Z95.5 Presence of coronary angioplasty implant and graft; Z79.01 Long term (current) use of anticoagulants; Z68.41 Body mass index [BMI] 40.0-44.9, adult; Y83.8 Other surgical procedures as the cause of abnormal reaction of the patient, or of later complication, without mention of misadventure at the time of the procedure
CPT/HCPCS: 11043; 97605

== ENCOUNTER 2020-06-22 11:00 | Outpatient (CLI) | payer MEDICARE, MEDICAID ==
[~2020-06-22 11:00] MED LIST changes: -LIDOcaine 2% 5ml jelly ONE
[2020-06-22] MEDS ORDERED: LIDOcaine 2% 5ml jelly ONE (12:31)
== END 2020-06-22 23:59 | disposition home or self-care (01) ==
LOC: WOUND CARE 11:00
PROVIDERS: ATTEND Nurse Practitioner
DX: T81.89XD Other complications of procedures, not elsewhere classified, subsequent encounter (principal); E11.622 Type 2 diabetes mellitus with other skin ulcer; L98.492 Non-pressure chronic ulcer of skin of other sites with fat layer exposed; L02.211 Cutaneous abscess of abdominal wall; E11.36 Type 2 diabetes mellitus with diabetic cataract; I10 Essential (primary) hypertension; E03.9 Hypothyroidism, unspecified; E66.01 Morbid (severe) obesity due to excess calories; G47.33 Obstructive sleep apnea (adult) (pediatric); I48.91 Unspecified atrial fibrillation; M19.90 Unspecified osteoarthritis, unspecified site; M17.0 Bilateral primary osteoarthritis of knee; F32.9 Major depressive disorder, single episode, unspecified; F40.240 Claustrophobia; F41.9 Anxiety disorder, unspecified; Z90.710 Acquired absence of both cervix and uterus; Z79.899 Other long term (current) drug therapy; Z98.49 Cataract extraction status, unspecified eye; Z95.5 Presence of coronary angioplasty implant and graft; Z79.01 Long term (current) use of anticoagulants; Z68.41 Body mass index [BMI] 40.0-44.9, adult; Y83.8 Other surgical procedures as the cause of abnormal reaction of the patient, or of later complication, without mention of misadventure at the time of the procedure
CPT/HCPCS: 11043

== ENCOUNTER 2020-08-26 09:04 | Day surgery (SDC) | payer MEDICARE, MEDICAID ==
[2020-08-26] VITALS (10 sets, daily range): BP systolic 112–163; BP diastolic 68–114
[~2020-08-26] VITALS: Ht 170.2 cm; Wt 126.4 kg
[~2020-08-26 09:04] MED LIST changes: -ACET325T63 PO; +ESCI20TA25 PO; -GLUC1KIT IM; -HYDR-3964 PO; -IPRA3AMP31 IH; -LACT1CAP26 PO; +ONDA4TAB6 PO; -POLY17PO10 PO; -TRAM100T27 PO; +ceFAZolin inj. 3,000 MG in normal saline 100ml IV soln 100 ML IV ONE; +famotidine 20mg tablet PO ONE; +ringers solution, lacted 1,000 ML IV SCH
[2020-08-26] MEDS ORDERED: sevoflurane 250ml liquid IH ONE (14:31)
[2020-08-26] MEDS ORDERED: dexamethasone sod phosphate 10mg/ml inj ONE (14:31)
[2020-08-26] MEDS ORDERED: midazolam 2 mg/2 ml injection ONE (14:45)
[2020-08-26] MEDS ORDERED: fentaNYL/PF 50MCG/1 ML 2ML syringe ONE (14:45)
[2020-08-26] MEDS ORDERED: propofol inj 20 ML IV ONE (14:49)
[2020-08-26] MEDS ORDERED: LIDOcaine 2% (20mg/ml) 5ml vial ONE (14:49)
[2020-08-26] MEDS ORDERED: ondansetron/PF 4mg/2ml inj ONE (15:13)
--- NOTE | 2020-08-26 15:32 | NUR ---
Received from OR via [facility] , accompanied by Anesthesiologist KIM and report given by Anesthesiolgist. PATIENT WITH ONE WOUND VAC SET AT 125MG. PATIENT DENIES NEED FOR PAIN MEDS AT THIS TIME. VSS. PATIENT WITH 10L MASK ON WITH 199% SATURATIONS. 20G PIV IN RIGHT UE RUNNING LR AT 100. Addendum: 08/26/20 at 1545 by Jayesh Zhao RN, RN Amended: Links added.
[2020-08-26] MEDS ORDERED: morphine 2 MG/ML inj. syringe IV PRN ×2 (16:00→16:35)
[2020-08-26] MEDS ORDERED: HYDROcodone/acetaminophen 10/325mg tab PO ONE (16:00)
[2020-08-26] MEDS: morphine 4 MG/ML inj SYRINge IV PRN ×2 (16:07→16:21)
[2020-08-26] MEDS ORDERED: HYDROmorphone/PF 0.2 MG/ML SYRINGE IV PRN ×2 (16:25)
[2020-08-26] MEDS ORDERED: meperidine/PF 25mg/ml syringe IV PRN ×3 (16:35)
[2020-08-26] MEDS ORDERED: ondansetron/PF 4mg/2ml inj IV PRN (16:35)
[2020-08-26] MEDS ORDERED: proCHLORperazine 10 MG/2 ml inj IV PRN (16:35)
[2020-08-26] MEDS ORDERED: morphine 4 MG/ML inj SYRINge IV PRN (16:35)
[2020-08-26] MEDS ORDERED: ringers solution, lacted 1,000 ML IV SCH (16:35)
--- NOTE | 2020-08-26 17:12 | NUR ---
Report called to receiving nurse. Transferred via PERSONAL WHEELCHAIR WITH A BLANKET, GLASSES, DENTURES X2 (IN MOUTH), SWEATER AND MUMU. WOUND CARE SUPPLIES IN BAG WITH THE REST OF HER Belongings . Special Issues communicated to receiving nurse.VSS. PAIN AT A TOLERABLE LEVEL AT THIS TIME. PATIENT VERY JOVIAL AND GRATEFUL UPON DISCHARGE, OUT VIA PERSONAL WHEELCHAIR WHERE [facility] TRANSPORTED PATIENT BACK TO FACILITY. IV OUT WITHOUT INCIDENT. ALL BANDS TAKEN OFF. CARE ASSUMED BY RN CARING FOR PATIENT THAT RECIEVED REPORT. Addendum: 08/26/20 at 1747 by Jayesh Zhao RN, RN Amended: Links added.
== END 2020-08-26 17:12 ==
LOC: PAS 09:04
PROVIDERS: ATTEND Surgery
DX: T81.89XD Other complications of procedures, not elsewhere classified, subsequent encounter (principal); Y83.8 Other surgical procedures as the cause of abnormal reaction of the patient, or of later complication, without mention of misadventure at the time of the procedure; Y92.89 Other specified places as the place of occurrence of the external cause; Z79.899 Other long term (current) drug therapy; R10.9 Unspecified abdominal pain; E66.9 Obesity, unspecified; Z68.34 Body mass index [BMI] 34.0-34.9, adult; E11.9 Type 2 diabetes mellitus without complications
CPT/HCPCS: 11043; 82948; 97607; J0690; J1100; J1170; J2001; J2250; J2270; J2405; J2704; J3010; J7120; A4618; A6550; A7000

== ENCOUNTER 2020-08-27 12:02 | Emergency (ER) | payer MEDICARE, MEDICAID ==
[~2020-08-27] VITALS: Ht 172.7 cm; Wt 126.4 kg
[~2020-08-27 12:02] MED LIST changes: -ceFAZolin inj. 3,000 MG in normal saline 100ml IV soln 100 ML IV ONE; -famotidine 20mg tablet PO ONE; -ringers solution, lacted 1,000 ML IV SCH
--- NOTE | 2020-08-27 14:32 | NUR ---
PER WILL VARGAS IN TO REMOVE ABD DRESSING AND REPLACE WITH A WET TO DRY DRESSING. PT WITH LARGE DRESSING OF MULTIPLE ROUND SPONGE MATERIAL WITH MULTIPLE LARGE TEGADERMS COVERING IT. LARGE AMOUNT OF BLOOD NOTED UNDER DRESSING. DOUBLE CHECKED WITH WILL REGARDING REMOVING DSG AND REPLACING IT WITH WET TO DRY. WILL IN TO SEE DSG AND STATED A PICTURE WAS SENT TO DR OROZCO AND PER HIS INSTRUCTIONS TO REMOVE THE DSG AND REPLACE WITH WET TO DRY. PRIOR TO REMOVING SMALL HOLE MADE IN DRESSING TO DRAIN THE BLOOD BEFORE REMOVING. APROX 200 ML BRIGHT RED BLOOD DRAINED FROM DRESSING PRIOR TO REMOVAL. DRESSING REMOVED AND A LARGE BLOOD CLOT APROX 4"X 6" (250ML) NOTED ON DRESSING. ABD SITE WITH BLACK SPONGE NOTED WITH BLOOD CONTINOUSLY DRAINING OUT SATURATING 2 BOXES OF 4X4. SITE CLEANED CLEAN ABD PADS PLACED OVER IT AND WILL VARGAS NOTIFIED. WILL VARGAS TO NOTIFY DR OROZCO FOR FURTHER INSTRUCTIONS.
--- NOTE | 2020-08-27 15:54 | NUR ---
wet to dry dressing placed and approved per provider. pt has no distress noted. called to [facility] and spoke with charge nurse. requested discharge summary to be sent with patient.
[2020-08-27 15:57] LABS: BASOPHILS # (AUTO) 0.1 X10'3 (0-0.2); BASOPHILS % (AUTO) 0.7 % (0-1); EOSINOPHILS # (AUTO) 0.1 X10'3 (0-0.9); EOSINOPHILS % (AUTO) 0.7 % (0-6); HEMATOCRIT 34.9 % (35.0-45.0); HEMOGLOBIN 11.2 g/dl (12.0-16.0); LYMPHOCYTES # (AUTO) 1.2 X10'3 (1.1-4.8); LYMPHOCYTES % (AUTO) 9.4 % (21-51); MEAN CORPUSCULAR VOLUME 78.2 FL (78-98); MEAN PLATELET VOLUME 8.7 FL (7.4-10.4); MONOCYTES # (AUTO) 0.9 X10'3 (0-0.9); MONOCYTES % (AUTO) 7.2 % (2-12); NEUTROPHILS # (AUTO) 10.5 X10'3 (1.8-7.7); PLATELET COUNT 259 X10'3 (140-440); RED BLOOD COUNT 4.46 X10'6 (4.20-5.60); RED CELL DISTRIBUTION WIDTH 26.7 % (11.5-14.5); WHITE BLOOD COUNT 12.8 X10'3 (4.5-11.0)
--- NOTE | 2020-08-27 16:24 | NUR ---
[facility] WILL BE HERE IN APROX 45MIN
[2020-08-27 17:03] VITALS: BP 114/70
== END 2020-08-27 17:39 | disposition home or self-care (01) ==
LOC: ER 12:02
DX: S31.109A Unspecified open wound of abdominal wall, unspecified quadrant without penetration into peritoneal cavity, initial encounter (principal); I10 Essential (primary) hypertension; I48.91 Unspecified atrial fibrillation; G47.30 Sleep apnea, unspecified; E11.9 Type 2 diabetes mellitus without complications; F32.9 Major depressive disorder, single episode, unspecified; Z98.890 Other specified postprocedural states; Z88.1 Allergy status to other antibiotic agents; Z88.8 Allergy status to other drugs, medicaments and biological substances; Z79.899 Other long term (current) drug therapy; X58.XXXA Exposure to other specified factors, initial encounter; Y93.89 Activity, other specified; Y92.89 Other specified places as the place of occurrence of the external cause; Y99.8 Other external cause status
CPT/HCPCS: 85025; 99284

== ENCOUNTER → 2020-09-29 | Outpatient (CLI) | payer MEDICARE, MEDICAID ==
[~2020-09-29] MED LIST changes: -MYL80T PO; +SERT-432 PO; -SERT25TA5 PO; +SIME80TA15 PO
== END | disposition home or self-care (01) ==
LOC: WOUND CARE 11:34
PROVIDERS: ATTEND Nurse Practitioner
DX: T81.89XD Other complications of procedures, not elsewhere classified, subsequent encounter (principal); E11.622 Type 2 diabetes mellitus with other skin ulcer; L98.492 Non-pressure chronic ulcer of skin of other sites with fat layer exposed; L02.211 Cutaneous abscess of abdominal wall; E11.36 Type 2 diabetes mellitus with diabetic cataract; I10 Essential (primary) hypertension; E03.9 Hypothyroidism, unspecified; E66.01 Morbid (severe) obesity due to excess calories; G47.33 Obstructive sleep apnea (adult) (pediatric); I48.91 Unspecified atrial fibrillation; M19.90 Unspecified osteoarthritis, unspecified site; M17.0 Bilateral primary osteoarthritis of knee; F32.9 Major depressive disorder, single episode, unspecified; F40.240 Claustrophobia; F41.9 Anxiety disorder, unspecified; Z90.710 Acquired absence of both cervix and uterus; Z79.899 Other long term (current) drug therapy; Z98.49 Cataract extraction status, unspecified eye; Z95.5 Presence of coronary angioplasty implant and graft; Z79.01 Long term (current) use of anticoagulants; Z68.41 Body mass index [BMI] 40.0-44.9, adult; Y83.8 Other surgical procedures as the cause of abnormal reaction of the patient, or of later complication, without mention of misadventure at the time of the procedure
CPT/HCPCS: 11042